=== PATIENT | male | born 1955 | race Caucasian/White ===

== ENCOUNTER 2016-07-05 12:47 | Day surgery (SDC) | payer OTHER ==
[~2016-07-05] VITALS: Ht 177.8 cm; Wt 117.7 kg
[2016-07-05] VITALS (10 sets, daily range): BP systolic 95–117; BP diastolic 69–85; PULSE 72–90; RESP 18–20; TEMP 98.4–98.6; O2SAT 96–98
[~2016-07-05 12:47] MED LIST: ATOR10 PO; COLC1TAB7 PO; COUM1TAB PO; HYDR12.56 PO; JANU50TA9 PO; LANO0.2510 PO; LORTA10 PO; LOSA25 PO; SOTA120T17 PO; WALKER STANDARD
[2016-07-05] MEDS ORDERED: INSULIN HUMAN REGULAR 1,000 UNITS/10 ML VIAL SQ PRN (13:45)
[2016-07-05] MEDS ORDERED: LORazepam 1 MG TAB SL SCH (13:45)
[2016-07-05] MEDS ORDERED: CHLORHEXIDINE GLUCONATE 2 % 1 PACK (2 CLOTHS) TOPICAL PRN (13:45)
[2016-07-05] MEDS ORDERED: LACTATED RINGER'S 1000 ML IV PRN (13:45)
[2016-07-05] MEDS ORDERED: SODIUM CHLORID 0.9% 500 ML IV PRN (13:45)
[2016-07-05] MEDS ORDERED: SODIUM CHLORID 0.9% 500 ML INJ 500 ML IV SCH (13:45)
[2016-07-05] MEDS ORDERED: METOPROLOL TARTRATE 25 MG TAB PO PRN (13:45)
[2016-07-05] MEDS ORDERED: POVIDONE IODINE 5% (ANTISEPSIS KIT) 4 APPLICATIONS EACH NARE PRN (13:45)
[2016-07-05] MEDS ORDERED: KOMB2.5T PO (13:54)
[2016-07-05] MEDS ORDERED: HYDR12.56 PO (13:54)
[2016-07-05] MEDS ORDERED: LOSA25TA PO (13:54)
[2016-07-05] MEDS ORDERED: WARF-22 PO (13:54)
[2016-07-05] MEDS ORDERED: DIGO0.25 PO (13:54)
[2016-07-05] MEDS ORDERED: [UNRECOGNIZED DRUG - CODE] PO (13:54)
[2016-07-05] MEDS ORDERED: WARF-18 PO (13:54)
[2016-07-05 13:57] LABS: AUTOMATED NEUTROPHIL # 4.3 TH/MM3 (1.8-7.7); BASOPHIL % 0.7 % (0.0-2.0); EOSINOPHIL # 0.5 TH/MM3 (0-0.4); EOSINOPHIL % 7.8 % (0.0-4.0); HEMATOCRIT 42.8 % (39.0-51.0); HEMO FLAGS DIFF FINAL; LYMPH % 12.7 % (9.0-44.0); LYMPHOCYTE # 0.8 TH/MM3 (1.0-4.8); MEAN CELL VOLUME 89.1 FL (80.0-100.0); MEAN CORPUSCULAR HEMOGLOBIN 31.2 PG (27.0-34.0); MONO % 11.6 % (0.0-8.0); NEUT % 67.2 % (16.0-70.0); PLATELET COUNT 153 TH/MM3 (150-450); RED CELL DISTRIBUTION WIDTH 14.4 % (11.6-17.2); WHITE BLOOD COUNT 6.4 TH/MM3 (4.0-11.0)
[2016-07-05 13:58] LABS: APTT (PATIENT) 37.9 SEC (24.3-30.1); INTERNATIONAL NORMALIZED RATIO 2.2 RATIO; PROTHROMBIN TIME - PATIENT 25.5 SEC (9.8-11.6)
[2016-07-05 14:19] LABS: BICARBONATE 28.8 MEQ/L (21.0-32.0)
[2016-07-05] MEDS ORDERED: MIDAZOLAM HCL 2 MG/2 ML VIAL ONE (15:13)
[2016-07-05] MEDS ORDERED: fentaNYL CITRATE 250 MCG/5 ML AMP ONE (15:14)
[2016-07-05] MEDS ORDERED: PROPOFOL 200 MG/20 ML AMP OTHER ONE (15:20)
[2016-07-05] MEDS ORDERED: SODIUM CHLORID 0.9% 500 ML BAG OTHER ONE (15:20)
[2016-07-05] MEDS ORDERED: LEVOFLOXACIN 500 MG PREMIX INJ 100 ML IV ONE (15:32)
[2016-07-05] MEDS ORDERED: HEPARIN-NS/PF INJ 500 ML ONE (15:32)
[2016-07-05] MEDS ORDERED: ISOPROTERENOL HCL 1 MG/5 ML AMP ONE (15:33)
[2016-07-05] MEDS ORDERED: HEPARIN SODIUM - IV 10,000 UNITS/10 ML VIAL ONE (15:33)
[2016-07-05] MEDS ORDERED: HEPARIN-D5W INJ 250 ML ONE (17:03)
[2016-07-05] MEDS ORDERED: PROTAMINE SULFATE 50 MG/5 ML VIAL ONE (18:43)
[2016-07-05] MEDS ORDERED: FUROSEMIDE 40 MG/4 ML VIAL ONE (18:43)
--- NOTE | 2016-07-05 18:57 | PD.CARD ---
Atrial Fibrillation Ablation PROCEDURE DATE: Jul 05, 2016 PROCEDURES PERFORMED: 1. Electrophysiology study on Isuprel infusion 2. CS cannulation 3. 3-D mapping 4. Transseptal approach 5. Right and left heart catheterization 6. Intracardiac echo 7. Radiofrequency ablation of atrial fibrillation 8. Pulmonary vein isolation 9. Posterior wall ablation 10. Mitral valve isolation 11. Mitral line creation 12. Left atrial tachycardia ablation 13. Roof line creation 14. Floor line creation 15. Anterior and posterior ablation 16. Cardioversion INDICATIONS FOR THE PROCEDURE Mr. Dalal is a 60-year-old male with hx of symptomatic atrial fibrillation, on anticoagulation, referred for electrophysiology study and ablation. The risks, the nature and the benefits of the procedure were clearly stated to him. The risks include pneumothorax, cardiac perforation, stroke, need for open heart surgery and even . The patient understood and agreed to proceed. DESCRIPTION OF THE PROCEDURE IN DETAIL As written informed consent was obtained prior to esophageal echocardiogram, the patient was kept on the table where he was prepped and draped in the usual sterile fashion. Conscious sedation was initiated and maintained throughout the procedure by the anesthesiologist. Once sedation was verified, the right and left inguinal areas were anesthetized with 2% Xylocaine. Using modified Seldinger technique, the left femoral vein was cannulated on three occasions, three guidewires were advanced. Over the wire a 6, 7 and a 10-[place] Hemaquet were advanced. Then the left femoral artery was cannulated on one occasion, one guidewire was advanced. Over the wire a 4-[place] African Hemaquet was advanced. Then the right femoral vein was cannulated on one occasion, one guidewire was advanced. Over the wire a 8-[place] Hemaquet was advanced. Then under fluoroscopic guidance through the 6 and 7-South African Hemaquet, two 5-South African Dinora curved quadripolar electrophysiology catheters were advanced and placed around the His as well as coronary sinus. Basic interval was measured. The patient was in atrial fibrillation. Through the 10-[place] African Hemaquet, a Cordis King AcuNav intracardiac echo catheter was advanced and placed at the right atrium. Multiple view was obtained. There is pericardial effusion, pulmonary vein was seen, atrial septal was visualized. Then the 8-[place] African Hemaquet in the right femoral vein was exchanged for Agilis transseptal sheath that was placed all the way to the superior vena cava. Through the sheath a Cody needle was advanced, then the sheath, the dilator and the needle were progressed until foci engaged. Once engaged, the needle was advanced. RF was delivered for 2 seconds. I was able to cross into the left atrium. Once the needle crossed, the dilator was advanced. Once the dilator crossed, the sheath was advanced. Once the sheath crossed, the dilator and the needle were removed. At this point I did flood the system and fluid movement was seen in the left atrium the indicates the sheath is in good position. The patient already received 8,000 units of heparin. The goal is to keep an ACT around 350 during ablation. Then through the sheath a St. Dann 20 pulse circumferential catheter was advanced. Using [employer] endocardial solution mapping system, a two- dimensional configuration of the left atrium was obtained. Points were taken at the left superior and inferior veins, right superior and inferior veins, mitral valve, and appendages. Then through the sheath a St. Dann TactiCath 65cm 3.5mm irrigated tipped mapping and radiofrequency ablation catheter was advanced. Esophageal probe was placed temperature monitoring during ablation. When it increased to 0.5 degrees Celsius above baseline, I moved to a different area of the atrium. First I did isolate the left superior and inferior vein. I did make a big kake around the veins. Posterior was ablated. Then a roof line was created, a floor line was created, a mitral line was isolated, then the mitral valve was isolated. At that point the patient was in left atrial tachycardia. I did create a line from the floor to the roof area, passing by the left atrial appendage. Then the right superior and inferior veins were isolated. I did remap the atrium. Early activation was at posterior floor. Then I did remap again apparently early activation shift to the right side. CS was mapped and isolated. Tachyarrhythmia cycle length increased. At this point I decided for cardioversion. A 200 sync biphasic joule was delivered that converted the patient into sinus rhythm. At that point I did advance the circumferential catheter again into the vein. There was no signal into the vein, pacing from the vein showed no conduction to the atrium. Isuprel infusion was initiated at 20 mcg for over 10 minutes. No tachyarrhythmia was induced, post Isuprel no tachyarrhythmia was induced. At that point the procedure was complete. All catheters were removed, atrial septal sheath was exchanged for 9-[place] African Hemaquet , intracardiac echo showed no pericardial effusion. There is still good flow in the pulmonary vein. The patient is going to be transferred to the recovery room. No incident report. The patient tolerated the procedure. Blood loss was minimal. FINDINGS 1. Electrocardiogram: At baseline the patient was in atrial fibrillation, post procedure the patient was in sinus rhythm. 2. Basic interval: Base cycle length was around 480. Post ablation she was around 960 milliseconds. AH at 90 and HV at 50 milliseconds. 3. Tachyarrhythmia: Atrial fibrillation was mapped and ablated. Atrial tachycardia was ablated. The ablation was successful. CONCLUSION Successful electrophysiology study, mapping, radiofrequency ablation of atrial fibrillation, left atrial tachycardia, pulmonary vein isolation, posterior ablation, mitral valve isolation, mitral line creation, roof line creation, floor line creation, left atrial tachycardia, right atrial tach ablation, CS isolation and cardioversion. COMMENTS AND RECOMMENDATIONS The patient is going to be transferred to the telemetry unit. Will be observed and when stable can be discharged home. Daxa Farrell MD Jul 05, 2016 18:57
[2016-07-05] MEDS ORDERED: WARFARIN SOD 2.5 MG TAB PO SCH (19:00)
[2016-07-05] MEDS ORDERED: oxyCODONE/ACETAMINOPHEN 5 MG/325 MG TAB PO PRN ×2 (19:00)
[2016-07-05] MEDS ORDERED: LORazepam 2 MG/ML VIAL IV PRN (19:00)
[2016-07-05] MEDS ORDERED: BACITRACIN OINT 0.9 GM PKT TOP ONE (19:00)
[2016-07-05] MEDS ORDERED: SODIUM CHLOR 0.9% 250 ML INJ 250 ML IV PRN (19:00)
[2016-07-05] MEDS ORDERED: ONDANSETRON HCL 4 MG/2 ML VIAL IV PRN (19:00)
[2016-07-05] MEDS ORDERED: METOCLOPRAMIDE HCL 10 MG/2 ML VIAL IV PRN (19:00)
[2016-07-05] MEDS ORDERED: LIDOCAINE HCL 1% 50 ML VIAL INFIL PRN (19:00)
[2016-07-05] MEDS ORDERED: ATROPINE SULFATE 1 MG/ML VIAL IV PRN (19:00)
[2016-07-05] MEDS ORDERED: WARFARIN SOD 10 MG TAB PO SCH (19:00)
[2016-07-05] MEDS ORDERED: PILL SPLITTER OTHER PRN (19:15)
[2016-07-05] MEDS: SOTALOL HCL 80 MG TAB PO SCH (21:03)
[2016-07-06] VITALS (9 sets, daily range): BP systolic 108–109; BP diastolic 77–87; PULSE 71–103; RESP 20; TEMP 98.1–98.4; O2SAT 96–98
[2016-07-06 06:21] LABS: APTT (PATIENT) 34.9 SEC (24.3-30.1); INTERNATIONAL NORMALIZED RATIO 2.2 RATIO; PROTHROMBIN TIME - PATIENT 24.7 SEC (9.8-11.6)
[2016-07-06] MEDS ORDERED: SAXAGLIPTIN METFORMIN PO SCH (09:00)
[2016-07-06] MEDS ORDERED: LOSARTAN 25 MG TAB PO SCH (09:00)
[2016-07-06] MEDS ORDERED: HYDROCHLOROTHIAZIDE 12.5 MG CAP PO SCH (09:00)
[2016-07-06] MEDS: SOTALOL HCL 80 MG TAB PO SCH (09:03)
--- NOTE | 2016-07-06 10:33 | HHI.PR ---
Subjective Remarks Feeling ok. Some issues with my hospital status Objective Vital Signs Date Time Temp Pulse Resp B/P Pulse Ox O2 Delivery O2 Flow Rate FiO2 07/06/16 10:00 103 07/06/16 09:00 98 07/06/16 07:00 98.1 74 20 109/87 96 07/06/16 07:00 74 07/06/16 05:00 76 07/06/16 04:00 74 07/06/16 04:00 98.4 71 20 108/77 98 07/06/16 03:00 74 07/06/16 02:00 74 07/06/16 01:00 74 07/06/16 00:00 72 07/05/16 23:27 98.4 72 20 95/77 98 07/05/16 23:00 72 07/05/16 22:30 105/78 07/05/16 22:00 80 07/05/16 21:45 114/82 07/05/16 21:15 117/76 07/05/16 21:00 104/80 07/05/16 21:00 84 07/05/16 20:45 96/69 07/05/16 20:33 98.4 83 18 105/69 97 07/05/16 20:25 82 16 102/71 97 Nasal Cannula 2 07/05/16 20:15 80 16 105/67 96 Nasal Cannula 2 07/05/16 20:00 79 16 105/66 95 Nasal Cannula 2 07/05/16 19:45 78 16 109/6 95 Nasal Cannula 2 07/05/16 19:30 83 16 115/79 95 Nasal Cannula 2 07/05/16 19:20 98.1 84 16 104/77 96 Nasal Cannula 2 07/05/16 13:57 98.6 90 18 114/85 96 I/O 07/05/16 07/05/16 07/05/16 07/06/16 07/06/16 07/06/16 07:00 15:00 23:00 07:00 15:00 23:00 Intake Total 2400 ml 1200 ml Output Total 1400 ml 800 ml Balance 1000 ml 400 ml Intake Oral 1200 ml IV Total 500 ml Other 1900 ml Output Urine Total 1400 ml 800 ml Result Diagram: 07/05/16 1330 07/05/16 1330 Imaging Alert, fully oriented Lungs: ventilated Heart: s1, S2 regular, no gallop Abdomen: soft, no mass Ext: no edema Current Medications Medications (Trade) Dose Ordered Sig/Luis Daniel Route Start Time Stop Time Status Last Admin Lactated Ringer's 1,000 ml @ 30 mls/hr Q24H PRN IV 07/05/16 13:45 07/08/16 13:44 Sodium Chloride 500 ml @ 30 mls/hr [id number] PRN IV 07/05/16 13:45 07/08/16 13:44 (NS 500 ml Inj) 500 ml @ 30 mls/hr [id number] IV 07/05/16 13:45 (Percocet 5-325 Mg) 1 tab Q4H PRN PO 07/05/16 19:00 (Percocet 5-325 Mg) 2 tab Q4H PRN PO 07/05/16 19:00 (Ativan Inj) 0.5 mg UNSCH PRN IV 07/05/16 19:00 07/06/16 18:59 Atropine Sulfate 0.5 mg 0.5 mg UNSCH PRN IV 07/05/16 19:00 (NS 250 ml Inj) 250 ml @ 500 mls/hr ONCE PRN IV 07/05/16 19:00 07/06/16 18:59 (Reglan Inj) 10 mg Q4H PRN IV 07/05/16 19:00 (Zofran Inj) 4 mg Q4H PRN IV 07/05/16 19:00 (Xylocaine 1% Inj (50 ml)) 10 ml UNSCH PRN INFIL 07/05/16 19:00 07/06/16 18:59 (Microzide) 12.5 mg DAILY PO 07/06/16 09:00 07/06/16 09:04 (Cozaar) 25 mg DAILY PO 07/06/16 09:00 07/06/16 09:04 (Coumadin) 2.5 mg DAILY@16 PO 07/05/16 19:00 07/05/16 21:36 (Coumadin) 10 mg DAILY@16 PO 07/05/16 19:00 07/05/16 21:36 Patient Own Medication PT OWN MED: Saxagliptin-Metformin... DAILY PO 07/06/16 09:00 07/06/16 09:00 (Betapace) 120 mg BID PO 07/05/16 21:00 07/06/16 09:03 (Pill Splitter) 1 ea UNSCH PRN OTHER 07/05/16 19:15 Assessment and Plan Problem List: (1) Atrial fibrillation Status: Acute Plan: SP ablation. Doing well. Feeling better Will be DH Amio added Follow up as scheduled (2) Palpitations Status: Acute Plan: No new episode since ablation. Doing better (3) SOB (shortness of breath) Status: Acute Plan: Improving Daxa Farrell MD Jul 06, 2016 10:33
[2016-07-06] MEDS ORDERED: AMIO200T PO ×2 (10:36)
[2016-07-06] MEDS ORDERED: AMIODARONE 200 MG TAB PO SCH (11:30)
--- NOTE | 2016-07-06 14:04 | ETE ---
Study Study Date:07/05/2016 STUDY CONCLUSIONS SUMMARY - Left ventricle: The cavity size was normal. Wall thickness was normal. Systolic function was normal. The estimated ejection fraction was in the range of 55% to 60%. Wall motion was normal; there were no regional wall motion abnormalities. - Aortic valve: No evidence of vegetation. - Mitral valve: No evidence of vegetation. - Left atrium: No evidence of thrombus in the atrial cavity or appendage. No evidence of thrombus in the atrial cavity or appendage. - Right atrium: No evidence of thrombus in the atrial cavity or appendage. - Atrial septum: No defect or patent foramen ovale was identified. Echo contrast study showed no [id number] atrial level shunt, at baseline or with provocation. - Tricuspid valve: No evidence of vegetation. - Pulmonic valve: No evidence of vegetation. If LV function is below 40, please consider prescribing an ACEI or ARB or document rationale for non-use. PROCEDURE DATA Consent: The risks, benefits, and alternatives to the procedure were explained to the patient and informed consent was obtained. Procedure: Initial setup. The patient was brought to the laboratory in the fasting state. Intravenous access was obtained. Surface ECG leads and pulse oximetric signals were monitored. Sedation. Conscious sedation was administered by anesthesiology. Transesophageal echocardiography. Topical anesthesia was obtained using viscous lidocaine. A transesophageal probe was inserted by the attending delivery merchandiser. Image quality was good. Study completion: All IVs inserted during the procedure were removed. The patient tolerated the procedure well. There were no complications. Transesophageal echocardiography. 2D, complete spectral Doppler, and color Doppler. CARDIAC ANATOMY LEFT VENTRICLE: The cavity size was normal. Wall thickness was normal. Systolic function was normal. The estimated ejection fraction was in the range of 55% to 60%. Wall motion was normal; there were no regional wall motion abnormalities. AORTIC VALVE: Trileaflet; mildly thickened leaflets. Cusp separation was normal. No evidence of vegetation. Doppler: No significant regurgitation. Aorta: - There was no atheroma. There was no evidence for dissection. Aortic root: The aortic root was not dilated. Ascending aorta: The ascending aorta was normal in size. Aortic arch: The aortic arch was normal in size. Descending aorta: The descending aorta was normal in size. MITRAL VALVE: Structurally normal valve. Leaflet separation was normal. No evidence of vegetation. Doppler: Trace regurgitation. LEFT ATRIUM: The atrium was normal in size. No evidence of thrombus in the atrial cavity or appendage. No evidence of thrombus in the atrial cavity or appendage. The appendage was morphologically a left appendage, multilobulated, and of normal size. Emptying velocity was normal. ATRIAL SEPTUM: No defect or patent foramen ovale was identified. Echo contrast study showed no [id number] atrial level shunt, at baseline or with provocation. RIGHT VENTRICLE: The cavity size was normal. Wall thickness was normal. Systolic function was normal. PULMONIC VALVE: Structurally normal valve. No evidence of vegetation. TRICUSPID VALVE: Structurally normal valve. Leaflet separation was normal. No evidence of vegetation. Doppler: Trace regurgitation. PULMONARY ARTERY: The main pulmonary artery was normal-sized. RIGHT ATRIUM: The atrium was normal in size. No evidence of thrombus in the atrial cavity or appendage. The appendage was morphologically a right appendage. PERICARDIUM: There was no pericardial effusion. Prepared and signed by Daxa Farrell [id number]
--- NOTE | 2016-07-07 07:12 | EKG ---
Date Performed: 07/05/2016 Time Performed: 13:46:32 PTAGE: 60 years EKG: Atrial fibrillation with frequent PVCs or aberrant ventricular conduction. Right bundle bra nch block Possible anterior infarct - age undetermined Inferior/lateral ST-T changes are nonspecific Low QRS voltages in precordial leads Abnormal ECG Compared to PREVIOUS TRACING , atrial fibrillation has replaced Sinus rhythm . PREVIOUS TRACIN10/15/2013 10.43 DOCTOR: Milo Sin Interpretating Date/Time 07/07/2016 07:10:17
[2016-07-11] MEDS ORDERED: AMIODARONE 200 MG TAB PO SCH (09:00)
== END 2016-07-06 11:35 | disposition home or self-care (01) ==
LOC: HDIC 12:47 → HDOC 12:47 → HCIS 20:28 → HDOC 07-06 11:35
PROVIDERS: ATTEND Internal Medicine Interventional Cardiology
DX: I48.2 Chronic atrial fibrillation (principal); I31.3 Pericardial effusion (noninflammatory)
CPT/HCPCS: 80048; 85002; 85025; 85610; 85730; 86850; 86900; 86901; 92960; 93005; 93312; 93320; 93325; 93613; 93623; 93656; 93662; C1730; C1731; C1732; C1759; C1766; C2630; J1644; J1940; J1956; J2250; J2720; J3010; J7040

== ENCOUNTER 2016-11-28 09:37 | Day surgery (SDC) | payer OTHER ==
[~2016-11-28] VITALS: Ht 177.8 cm; Wt 103.5 kg
[~2016-11-28 09:37] MED LIST changes: +AMIO200T PO; -ATOR10 PO; -COLC1TAB7 PO; -COUM1TAB PO; -JANU50TA9 PO; +KOMB2.5T PO; -LANO0.2510 PO; -LORTA10 PO; -LOSA25 PO; +LOSA25TA PO; -SOTA120T17 PO; -WALKER STANDARD; +WARF-22 PO
[2016-11-28 10:19] VITALS: BP 122/92; PULSE 156; RESP 17; TEMP 98.1; O2SAT 95
[2016-11-28 10:30] LABS: AUTOMATED NEUTROPHIL # 4.1 TH/MM3 (1.8-7.7); BASOPHIL % 0.5 % (0.0-2.0); EOSINOPHIL # 0.3 TH/MM3 (0-0.4); EOSINOPHIL % 5.1 % (0.0-4.0); HEMATOCRIT 42.5 % (39.0-51.0); HEMO FLAGS DIFF FINAL; LYMPH % 12.4 % (9.0-44.0); LYMPHOCYTE # 0.7 TH/MM3 (1.0-4.8); MEAN CELL VOLUME 91.6 FL (80.0-100.0); MEAN CORPUSCULAR HEMOGLOBIN 31.1 PG (27.0-34.0); MEAN CORPUSCULAR HGB CONC 33.9 % (32.0-36.0); MONO % 12.8 % (0.0-8.0); NEUT % 69.2 % (16.0-70.0); PLATELET COUNT 163 TH/MM3 (150-450); RED BLOOD COUNT 4.64 MIL/MM3 (4.50-5.90); RED CELL DISTRIBUTION WIDTH 15.6 % (11.6-17.2); WHITE BLOOD COUNT 5.9 TH/MM3 (4.0-11.0)
[2016-11-28] MEDS ORDERED: KOMB5TAB2 PO (10:34)
[2016-11-28] MEDS ORDERED: WARF-18 PO (10:34)
[2016-11-28] MEDS ORDERED: ATOR10TA15 PO (10:34)
[2016-11-28 10:46] LABS: APTT (PATIENT) 36.6 SEC (24.3-30.1); INTERNATIONAL NORMALIZED RATIO 2.3 RATIO; PROTHROMBIN TIME - PATIENT 26.7 SEC (9.8-11.6)
[2016-11-28 10:50] LABS: POTASSIUM 4.3 MEQ/L (3.5-5.1)
[2016-11-28] MEDS ORDERED: CHLORHEXIDINE GLUCONATE 2 % 1 PACK (2 CLOTHS) TOPICAL PRN (11:00)
[2016-11-28] MEDS ORDERED: METOPROLOL TARTRATE 25 MG TAB PO PRN (11:00)
[2016-11-28] MEDS ORDERED: SODIUM CHLORID 0.9% 500 ML IV PRN (11:00)
[2016-11-28] MEDS ORDERED: POVIDONE IODINE 5% (ANTISEPSIS KIT) 4 APPLICATIONS EACH NARE PRN (11:00)
[2016-11-28] MEDS ORDERED: LACTATED RINGER'S 1000 ML IV PRN (11:00)
[2016-11-28] MEDS ORDERED: INSULIN HUMAN REGULAR 1,000 UNITS/10 ML VIAL SQ PRN (11:00)
[2016-11-28] MEDS ORDERED: SODIUM CHLORID 0.9% 500 ML INJ 500 ML IV SCH (11:15)
[2016-11-28] MEDS ORDERED: LORazepam 1 MG TAB SL SCH (11:15)
[2016-11-28] MEDS ORDERED: SODIUM CHLOR 0.9% 250 ML INJ 250 ML ONE (13:06)
[2016-11-28] MEDS ORDERED: HEPARIN-NS/PF INJ 500 ML ONE (13:06)
[2016-11-28] MEDS ORDERED: ISOPROTERENOL HCL 1 MG/5 ML AMP ONE (13:06)
[2016-11-28] MEDS ORDERED: HEPARIN SODIUM - IV 10,000 UNITS/10 ML VIAL ONE (13:06)
[2016-11-28] MEDS ORDERED: MIDAZOLAM HCL 2 MG/2 ML VIAL ONE (13:16)
[2016-11-28] MEDS ORDERED: LEVOFLOXACIN 500 MG PREMIX INJ 100 ML IV ONE (13:29)
[2016-11-28] MEDS ORDERED: HEPARIN-NS/PF INJ 2,000 ML ONE (13:31)
--- NOTE | 2016-11-28 13:51 | EKG ---
Date Performed: 11/28/2016 Time Performed: 10:42:18 PTAGE: 61 years EKG: Atrial flutter with rapid ventricular response with 2:1 A-V block. Left axis deviation RBBB with left anterior fascicular block Inferior infarct - age undetermined Lateral ST-T changes may be due to myocardial ischemia Abnormal ECG Compared to prior tracing no significant change PREVIOUS TRACING : 07/05/2016 13.46 DOCTOR: Elvis Murphy Interpretating Date/Time 11/28/2016 13:47:41
[2016-11-28] MEDS ORDERED: HEPARIN-D5W 25,000 U/250 ML 250 ML ONE (14:31)
[2016-11-28] MEDS ORDERED: PROTAMINE SULFATE 50 MG/5 ML VIAL ONE (15:29)
[2016-11-28] MEDS ORDERED: FUROSEMIDE 40 MG/4 ML VIAL ONE (15:29)
--- NOTE | 2016-11-28 15:56 | CATHPROC ---
[employer] HIS Report Study Information Study Number Admission Scheduled Start Study Start [id number] Nov 28 2016 9:37AM 11/28/2016 Nov 28 2016 12:54PM [place] [facility] Electrophysiology Study Admit Source Facility Department Other [facility] - Node Js Developer Physician and Clinical Staff Initial Daxa Angel Pivot End Polisher Thierry Glass,RT(R) Other Ellyn Hoover RN Other Anesthesia, PHP MYSQL WEB DEVELOPER Recorder Anna Marie Varela BSRN Scrub Monika Aguila RCIS Procedures Performed Procedure Location (Site) Vessel Name Ablation Procedure ICE CATHETER INSERT RA Atruim Equipment Time Electrician Technician Description Size Mfg Part Number Used/Scraped NEEDLE, TRANSSEPTAL NRG 98 13:09 [facility] [id number] Used C1 [employer]/ EP 13:09 KIT, TRANSDUCER / AFIB [id number] Used PACER [id number] CATHETER, TACTICATH ABLAT BUNDLE 13:09 BUNDLE-[facility]. LETY Used 65 BUNDLE *[id number] BUNDLE [id number] CATHETER, FR7 OPTIMA SPIRAL 13:09 BUNDLE-[facility]. LETY FR7 *[id number]- Used BUNDLE BUNDLE [id number] 13:09 BUNDLE-[facility]. LETY CATHETER, JSN, QUAD BUNDLE FR 5 *[id number]- Used BUNDLE [id number] 13:09 BUNDLE-[employer]. LETY CATHETER, JSN, QUAD BUNDLE FR 5 *[id number]- Used BUNDLE [id number], COOL POINT TUBING 13:09 BUNDLE-ST. LETY *[id number]- Used BUNDLE BUNDLE SHEATH, FR8.5 STEERABLE SM 13:09 BUNDLE-ST. LETY 71CM [id number] Used 71CM BUNDLE COVER, TRANSDUCER CABLE 13:09 Carticipate [id number] Used ACUNAV 13:09 CORDIS/PACER SHEATH, FR10 CARROL 11CM FR 10 [id number] Used 13:09 CORDIS/PACER SHEATH, FR9 CARROL 11CM FR 9 [id number] Used [id number] 13:09 MEDLINE INDUSTRIES PACK, CCL CUSTOM * Used *[id number] 13:09 MEDLINE PACER BRO, LIMB * 3540 *[id number] Used [id number] 13:09 Stimatix GI MEDICAL SHEATH, FR4.5 PRELUDE 11CM FR 4.5 Used [id number] 13:09 NAMIC TUBING, HIGH PRESSURE 48" 48" Used *[id number] 13:09 NAMIC TUBING, HIGH PRESSURE 48" 48" Used *[id number] 13:09 [place] MEDICAL BLANKET,WARM AIR CCL * Used *[id number] 13:09 [facility] MEDICAL ELECTRODE KIT, RAMONA X SURFACE * [id number] Used [id number] 13:09 [facility] MEDICAL SHEATH, EPS, FR6 FAST CATH FR 6 Used *[id number] 13:09 [facility] LETY MEDICAL SHEATH, EPS, FR7 FAST CATH FR 7 [id number] Used [id number] 13:09 [facility] LETY MEDICAL SHEATH, EPS, FR8 FAST CATH FR 8 Used *[id number] CATHETER, ACUNAV FR10 ICE [id number] 14:16 DIOMEDES FR 10 Used (DIOMEDES) *[id number] [facility] PAD, ELECTROSURGICAL 13:09 * [id number] *[id number] Used SURGICAL GROUNDING (BLUE) History: Current Medications Medication Dosage/Unit Route Frequency Last Date/Time Taken Coumadin History: Allergies Allergy Reaction NKDA History: Risk Factors Previous Heart Failure Yes Diabetes Labs Hgb (g/dl) Hct (%) RBC (MIL/MM3) WBC (l/cumm) Platelets (thousands) 11.60-17.00 35.00-51.00 4.00-5.90 4.00-11.00 150.00-450.00 14.4 42.5 4.6 5.9 163 Glucose (mg/dl) BUN (mg/dl) Creatinine (mg/dl) BUN:Creatinine (1:x) 74.00-106.00 7.00-18.00 0.50-1.30 10.00-20.00 119 12 1.0 12 Na (meq/l) K (meq/l) 136.00-145.00 3.50-5.10 139 4.3 INR (PTT:PT) 0.90-1.10 2.2 Medication Medication Total Dose (Bolus/Oral) Medication Total Dosage/Unit 1% XYLOCAINE 40 mL HEPARIN 6000 units LASIX 20 mg PROTAMINE 40 mg Medications (Bolus/Oral) Medication Time Given Dosage/Unit Administered By Reason 1% XYLOCAINE 11/28/2016 2:06:13 PM 20 mL Daxa Farrell As per physicians albert bal order 20 mL 1% XYLOCAINE given in lab by Daxa Farrell in Left Groin via Subcutaneous. Ordered by Otto Farrell. Reason: As per physicians verbal order. 1% XYLOCAINE 11/28/2016 2:12:53 PM 20 mL Daxa Farrell For pain 20 mL 1% XYLOCAINE given in lab by Daxa Farrell in Right Groin via Subcutaneous. Ordered by Andrey Farrell. Reason: For pain. HEPARIN 11/28/2016 2:18:41 PM 6000 units Anesthesia, PHP MYSQL WEB DEVELOPER As per physicians verbal order 6000 units HEPARIN given in lab by Anesthesia, PHP MYSQL WEB DEVELOPER in Right Forearm via Peripheral IV. Ordered by Daxa Chacko. Reason: As per physicians verbal order. PROTAMINE 11/28/2016 3:28:28 PM 40 mg Anesthesia, PHP MYSQL WEB DEVELOPER As per physicians ve rbal order 40 mg PROTAMINE given in lab by Anesthesia, PHP MYSQL WEB DEVELOPER in Right Forearm via Peripheral IV. Ordered by Daxa Farrell. Reason: As per physicians verbal order. LASIX 11/28/2016 3:28:57 PM 20 mg Anesthesia, PHP MYSQL WEB DEVELOPER As per physicians verb al order 20 mg LASIX given in lab by Anesthesia, PHP MYSQL WEB DEVELOPER in Right Forearm via Peripheral IV. Ordered by Otto Farrell. Reason: As per physicians verbal order. Medication (Drip) Medication Time Given Dosage/Unit Concentration/Unit Diluent (ml) Solution HEPARIN DRIP 11/28/2016 2:31:47 PM 1000 units/hr 40732 units 250 D5W 1000 units/hr HEPARIN DRIP given in lab by Anesthesia, PHP MYSQL WEB DEVELOPER in Right Forearm via Peripheral IV. Pump/ Drip Flow = 10 ml/hr using [place] [address] units in 250 ml. Ordered by Daxa Farrell. Reason: As per physicians verbal or zhanna. ISUPREL 11/28/2016 3:14:28 PM 20 mcg/min 1 mg 250 NaCl .9 20 mcg/min ISUPREL given in lab by Anesthesia, PHP MYSQL WEB DEVELOPER in Right Forearm via Peripheral IV. Pump/Drip Ahsan w = 300 ml/hr using NaCl .9 with a concentration of 1 mg in 250 ml. Ordered by Daxa Farrell. Reason: As per physicians verbal order. IV Solutions 11/28/2016 1:19:45 PM 0 mL (IV) NaCl .9 IV Solutions given in lab by Mrache, Ellyn, RN in Left Forearm via Peripheral IV. Pump/Drip Flow = 50 ml/hr using NaCl .9. Ordered by Daxa Farrell. Reason: As per physicians verbal order. IV Solutions 11/28/2016 1:20:41 PM 0 mL (IV) NaCl .9 IV Solutions given in lab by Ellyn Hoover RN in Left Forearm via Peripheral IV. Pump/Drip Flow = 50 ml/hr using NaCl .9. Ordered by Daxa Farrell. Reason: As per physicians verbal order. LEVAQUIN 11/28/2016 1:34:10 PM 100 mL/hr 500 100 NaCl .9 100 mL/hr LEVAQUIN given in lab by Ellyn Hoover, AYLEEN in Right Forearm via Peripheral IV. Pump/Drip Flow = 0 ml/hr using NaCl .9 with a concentration of 500 in 100 ml. Ordered by Daxa Farrell. Reason: As per physicians verbal order. Initial Case Assessment Cardiovascular HR NIBP 107 110/85 Edema Present Skin color Skin None Normal Warm Dry Neurological State Oriented to time-place- Alert Moves all extremities person Respiration - General Respiration Rate SpO2 (%) (B/min) 20 97 Final Case Assessment Cardiovascular HR NIBP Chest Pain 89 101/56 0 Edema Present Skin color Skin None Normal Warm Dry Neurological State Oriented to time-place- Alert Moves all extremities person Respiration - General Respiration Rate SpO2 (%) (B/min) 18 98 Chronological Log Time Study Chronological Log 13:16:24 Patient arrived via Bed. 13:16:26 Patient Name, D.O.B, / Armband Verified By R.N. 13:16:30 Consent signed by the physician and the patient and verified by the Node Js Developer staff. 13:16:32 Pre-op and post- op instructions given; patient acknowledges understanding of instructions. 13:18:46 Verbal Stimulation=2 Physical Stimulation=2 Airway=2 Respiration=2 TOTAL=10. (0=absent, 1=l imited, 2=present) 13:18:58 Anesthesia at bedside. Assumes care of patient. Ian SCHAEFFER 13:19:00 Presedation assessment performed by Node Js Developer RN. 13:19:03 Immediate Presedation assesment performed by physician. 13:19:05 Patient has been NPO for More than 6Hrs. 13:19:08 Skin Breakdown- none 13:19:17 Patient Warmer Placed on the Table. 13:19:20 Disposable Defibrillator Pads Placed On Patient. 13:19:23 Ramses Prominences Protected 13:19:27 A # 20 IV was noted in the Forearm (left). Grade = ~GRADE~ 13:19:36 A # 20 IV was noted in the Forearm (right). Grade = ~GRADE~ IV Solutions given in lab by Ellyn Hoover RN in Left Forearm via Peripheral IV. Pump/Drip Flow = 50 ml/hr using 13:19:45 NaCl .9. Ordered by Daxa Farrell. Reason: As per physicians verbal order. IV Solutions given in lab by Ellyn Hoover RN in Left Forearm via Peripheral IV. Pump/Drip Flow = 50 ml/hr using 13:20:41 NaCl .9. Ordered by Daxa Farrell. Reason: As per physicians verbal order. 13:20:59 History and physical on the chart or being dictated. Assessment: Initial Case, SZ=999 BPM, EPYQ=663/85 mmhg, Edema=None, Color=Normal, Skin = Warm, Dry 13:21:08 Neurological: State=Alert, Ox3, ELDRIDGE Respiration: Resp=20 B/min, SpO2=97 % 13:21:11 Table restraints applied according to hospital policy 13:21:13 Right groin prepped with 2% chlorhexidine, and with a 3 min. waiting time. 13:21:16 Left groin prepped with 2% chlorhexidine, and with a 3 min. waiting time. 100 mL/hr LEVAQUIN given in lab by Ellyn Hoover RN in Right Forearm via Peripheral IV. Pum p/Drip Flow = 0 13:34:10 ml/hr using NaCl .9 with a concentration of 500 in 100 ml. Ordered by Daxa Farrell. Reason : As per physicians verbal order. 13:34:27 Indwelling uretheral catheter inserted my Marisa ABBASI with clear yellow urine noted. 13:37:55 Reference ECG taken 13:57:55 MD arrived. Time Out. Correct patient, procedure, procedure equipment, site and side verified with physicia n present. Time 14:02:00 concurred by MD, individual staff and PHP MYSQL WEB DEVELOPER. Time Out #2 - Consents verified, patient in correct position, all results are labled and displa yed, safety precautions 14:02:16 taken, antibiotics administered. Time out concurred by MD, individual staff and PHP MYSQL WEB DEVELOPER in procedu re 14:02:29 Case Start 14:02:34 RICKY in progress. 14:04:50 RICKY complete. 20 mL 1% XYLOCAINE given in lab by Daxa Farrell in Left Groin via Subcutaneous. Ordered by Daxa Hannon. 14:06:13 Reason: As per physicians verbal order. 14:06:31 Vascular access was obtained in the Fem Vein (left). 14:06:36 Vascular access was obtained in the Fem Vein (left). 14:06:36 Vascular access was obtained in the Fem Vein (left). 14:07:03 Vascular access was obtained in the Fem Art (left). 14:07:22 A SHEATH, FR4.5 PRELUDE 11CM FR 4.5 was advanced into the Fem Art (left) using the Percutan eous technique. 14:07:35 A SHEATH, EPS, FR6 FAST CATH FR 6 was advanced into the Fem Vein (left) using the Percutane ous technique. 14:07:44 A SHEATH, EPS, FR7 FAST CATH FR 7 was advanced into the Fem Vein (left) using the Percutane ous technique. 14:07:53 A SHEATH, FR10 CARROL 11CM FR 10 was advanced into the Fem Vein (left) using the Percutaneo us technique. 20 mL 1% XYLOCAINE given in lab by Daxa Farrell in Right Groin via Subcutaneous. Ordered by Daxa Chacko. 14:12:53 Reason: For pain. 14:13:08 Vascular access was obtained in the Fem Vein (right). 14:13:14 A SHEATH, EPS, FR8 FAST CATH FR 8 was advanced into the Fem Vein (right) using the Percutan eous technique. A CATHETER, JSN, QUAD BUNDLE FR 5 was advanced vis Fem Vein (left) and placed in the CS. Placem ent was visually 14:13:30 confirmed under fluoroscopy. A CATHETER, JSN, QUAD BUNDLE FR 5 was advanced vis Fem Vein (left) and placed in the HIS. Place ment was 14:13:52 visually confirmed under fluoroscopy. 14:15:49 CATHETER, ACUNAV FR10 ICE (DIOMEDES) FR 10 Was Postioned. A SHEATH, FR8.5 STEERABLE SM 71CM BUNDLE 71CM was exchanged in the Fem Vein (right). This was n ecessary in 14:16:39 order for catheter support. 14:16:54 [place] needle inserted. 14:17:43 Transseptal. 14:17:50 [place]view needle removed. 6000 units HEPARIN given in lab by Anesthesia, PHP MYSQL WEB DEVELOPER in Right Forearm via Peripheral IV. Ordered by Daxa Farrell. 14:18:41 Reason: As per physicians verbal order. A CATHETER, FR7 OPTIMA SPIRAL BUNDLE FR7 was advanced vis Fem Vein (right) and placed in the LA . Placement 14:19:26 was visually confirmed under fluoroscopy. 14:19:39 Mapping begun. 14:23:11 Activated Clotting Time Drawn 14:29:03 Mapping completed. Scarbro catheter removed. A CATHETER, TACTICATH ABLAT 65 BUNDLE was advanced vis Fem Vein (right) and placed in the LA. P lacement was 14:29:44 visually confirmed under fluoroscopy. 14:30:53 ACT (Normal Range 90-180) = 358 1000 units/hr HEPARIN DRIP given in lab by Anesthesia, PHP MYSQL WEB DEVELOPER in Right Forearm via Peripheral IV. Pump/Drip Flow = 10 14:31:47 ml/hr [place] [address] units in 250 ml. Ordered by Daxa Farrell. Re ason: As per physicians verbal order. 14:32:19 Ablation in progress. 15:00:36 Activated Clotting Time Drawn 15:04:54 ACT (Normal Range 90-180) = 347 15:14:18 Ablation completed. 20 mcg/min ISUPREL given in lab by Anesthesia, PHP MYSQL WEB DEVELOPER in Right Forearm via Peripheral IV. Pump/Dr ip Flow = 300 ml/hr 15:14:28 using NaCl .9 with a concentration of 1 mg in 250 ml. Ordered by Daxa Farrell. Reason: As per physicians verbal order. 15:23:57 Isuprel gtt off. 15:24:34 Ablation procedure performed: AFIB. 15:24:50 EP Procedure was performed. 15:25:00 Catheter(s) removed without difficulty 15:25:03 Sheath(s) left in place, will be removed in Holding Area 15:25:07 Sterile dressings applied to sites 15:25:09 No case complications noted. 15:25:11 Cine recording checked. 15:25:14 Holding Area notified of successful intervention. 15:25:20 Bedside Report will be given. 15:25:29 Defibrillator and ground pads removed. Skin intact. 15:25:38 PACU called. Spoke to Zina. 40 mg PROTAMINE given in lab by Anesthesia, PHP MYSQL WEB DEVELOPER in Right Forearm via Peripheral IV. Ordered by Daxa Farrell. 15:28:28 Reason: As per physicians verbal order. 20 mg LASIX given in lab by Anesthesia, PHP MYSQL WEB DEVELOPER in Right Forearm via Peripheral IV. Ordered by Daxa Hannon. Reason: 15:28:57 As per physicians verbal order. Assessment: Final Case, HR=89 BPM, AIUP=094/56 mmhg, Chest Pain=0, Edema=None, Color=Normal, Sk in = Warm, Dry 15:30:42 Neurological: State=Alert, Ox3, ELDRIDGE Respiration: Resp=18 B/min, SpO2=98 % 15:45:48 ACT (Normal Range 90-180) = 146 15:59:00 Case End 16:00:00 [facility] in stable condition. End Study - Contrast Media Used In Study Contrast Total Opened (mL) Total Used (mL) Total Wasted (mL) Unspecified 0 0 0 End Study - Maximum Contrast Load Max Contrast Load (mL) 518.0 End Study - Radiation Exposure Fluoro Time (minutes) 0.9 End Study - Patient Disposition Complications Transferred To Interventional Outcome No Telemetry Bed successful
[2016-11-28] MEDS ORDERED: BACITRACIN OINT 0.9 GM PKT TOP ONE (16:15)
[2016-11-28] MEDS ORDERED: SODIUM CHLOR 0.9% 250 ML INJ 250 ML IV PRN (16:15)
[2016-11-28] MEDS ORDERED: LIDOCAINE HCL 1% 50 ML VIAL INFIL PRN (16:15)
[2016-11-28] MEDS ORDERED: LORazepam 2 MG/ML VIAL IV PRN (16:15)
[2016-11-28] MEDS ORDERED: oxyCODONE/ACETAMINOPHEN 5 MG/325 MG TAB PO PRN ×2 (16:15)
[2016-11-28] MEDS ORDERED: ONDANSETRON HCL 4 MG/2 ML VIAL IV PRN (16:15)
[2016-11-28] MEDS ORDERED: METOCLOPRAMIDE HCL 10 MG/2 ML VIAL IV PRN (16:15)
[2016-11-28] MEDS ORDERED: ATROPINE SULFATE 1 MG/ML VIAL IV PRN (16:15)
--- NOTE | 2016-11-28 16:17 | PD.CARD ---
Atrial Fibrillation Ablation PROCEDURE DATE: Nov 28, 2016 PROCEDURES PERFORMED: 1. Electrophysiology study on Isuprel infusion 2. CS cannulation 3. 3-D mapping 4. Transseptal approach 5. Right and left heart catheterization 6. Intracardiac echo 7. Radiofrequency ablation of atrial fibrillation 8. Pulmonary vein isolation 9. Posterior wall ablation 10. Mitral valve isolation 11. Mitral line creation 12. Left atrial tachycardia ablation 13. Roof line creation 14. Floor line creation 15. Anterior wall ablation INDICATIONS FOR THE PROCEDURE Mr. Dalal is a 61-year-old male with atrial fibrillation, very symptomatic, on anticoagulation referred for electrophysiology study and ablation. The risks, the nature and the benefits of the procedure were clearly stated to him. The risks include pneumothorax, cardiac perforation, stroke, need for open heart surgery and even . The patient understood and agreed to proceed. DESCRIPTION OF THE PROCEDURE IN DETAIL As written informed consent was obtained prior to esophageal echocardiogram, the patient was kept on the table where he was prepped and draped in the usual sterile fashion. Conscious sedation was initiated and maintained throughout the procedure by the anesthesiologist. Once sedation was verified, the right and left inguinal areas were anesthetized with 2% Xylocaine. Using modified Seldinger technique, the left femoral vein was cannulated on three occasions, three guidewires were advanced. Over the wire a 6, 7 and a 10-Argentine Hemaquet were advanced. Then the left femoral artery was cannulated on one occasion, one guidewire was advanced. Over the wire a 4-Argentine Hemaquet was advanced. Then the right femoral vein was cannulated on one occasion, one guidewire was advanced. Over the wire a 8-Argentine Hemaquet was advanced. Then under fluoroscopic guidance through the 6 and 7-Argentine Hemaquet, two 5-Argentine Dinora curved quadripolar electrophysiology catheters were advanced and placed around the His as well as coronary sinus. Basic interval was measured. The patient was in atrial fibrillation. Through the 10-Argentine Hemaquet, a Cordis King AcuNav intracardiac echo catheter was advanced and placed at the right atrium. Multiple view was obtained. There was no pericardial effusion, pulmonary vein was seen, atrial septal was visualized. Then the 8-Argentine Hemaquet in the right femoral vein was exchanged for Agilis transseptal sheath that was placed all the way to the superior vena cava. Through the sheath a Cody needle was advanced, then the sheath, the dilator and the needle were progressed until foci engaged. Once engaged, the needle was advanced. RF was delivered for 2 seconds. I was able to cross into the left atrium. Once the needle crossed, the dilator was advanced. Once the dilator crossed, the sheath was advanced. Once the sheath crossed, the dilator and the needle were removed. At this point I did flood the system and fluid movement was seen in the left atrium the indicates the sheath is in good position. The patient already received 10,000 units of heparin. The goal is to keep an ACT around 350 during ablation. Then through the sheath a St. Dann 20 pulse circumferential catheter was advanced. Using [employer] endocardial solution mapping system, a two-dimensional configuration of the left atrium was obtained. Points were taken at the left superior and inferior veins, right superior and inferior veins, mitral valve, and appendages. Then through the sheath a St. Dann TactiCath 65cm 3.5mm irrigated tipped mapping and radiofrequency ablation catheter was advanced. Esophageal probe was placed temperature monitoring during ablation. When it increased to 0.5 degrees Celsius above baseline, I moved to a different area of the atrium. First I did isolate the left superior and inferior vein. I did make a big [place] around the veins. Posterior was ablated. Then a roof line was created, a floor line was created, a mitral line was isolated, then the mitral valve was isolated. At that point the patient was in left atrial tachycardia. I did create a line from the floor to the roof area, passing by the left atrial appendage. Early activation was at the anterior wall. Ablation was performed. CL prolonged and patient converted into sinus rhythm. At that point I did advance the circumferential catheter again into the vein. There was no signal into the vein, pacing from the vein showed no conduction to the atrium. Isuprel infusion was initiated at 20 mcg for over 10 minutes. No tachyarrhythmia was induced, post Isuprel no tachyarrhythmia was induced. At that point the procedure was complete. All catheters were removed, atrial septal sheath was exchanged for 9-Argentine Hemaquet, intracardiac echo showed no pericardial effusion. There is still good flow in the pulmonary vein. The patient is going to be transferred to the recovery room. No incident report. The patient tolerated the procedure. Blood loss was minimal. FINDINGS 1. Electrocardiogram: At baseline the patient was in atrial fibrillation, post procedure the patient was in sinus rhythm. 2. Basic interval: Base cycle length was around 520. Post ablation she was around 980 milliseconds. AH at 120 and HV at 54 milliseconds. 3. Tachyarrhythmia: Atrial fibrillation and left atrial tachycardia was mapped and ablated. The ablation was successful. CONCLUSION Successful electrophysiology study, mapping, radiofrequency ablation of atrial fibrillation, left atrial tachycardia, pulmonary vein isolation, posterior ablation, mitral valve isolation, mitral line creation, roof line creation, floor line creation, left atrial tachycardia. COMMENTS AND RECOMMENDATIONS The patient is going to be transferred to the telemetry unit. Will be observed and when stable can be discharged home. Daxa Farrell MD Nov 28, 2016 16:17
[2016-11-28] MEDS ORDERED: WARFARIN SOD 10 MG TAB PO SCH (18:00)
[2016-11-28] MEDS ORDERED: WARFARIN SOD 2.5 MG TAB PO SCH (18:00)
[2016-11-28 19:00] VITALS: BP 94/77; PULSE 84; RESP 18; TEMP 98; O2SAT 99
[2016-11-28] MEDS ORDERED: WARFARIN SOD 7.5 MG TAB PO SCH (19:00)
[2016-11-28] MEDS ORDERED: DO NOT ADM ANY ANTICOAGULANT DRUGS PRN (19:00)
[2016-11-28 21:00] VITALS: PULSE 84
[2016-11-28] MEDS ORDERED: ATORVASTATIN 10 MG TAB PO SCH (21:00)
[2016-11-28] MEDS ORDERED: SAXAGLIPTIN METFORMIN PO SCH (21:00)
[2016-11-28 22:00] VITALS: PULSE 84
[2016-11-28 23:00] VITALS: BP 95/67; PULSE 84; RESP 18; TEMP 98; O2SAT 98
[2016-11-29] VITALS (9 sets, daily range): BP systolic 103–113; BP diastolic 69–81; PULSE 76–84; RESP 16–20; TEMP 97.8–98; O2SAT 97–100
[2016-11-29 07:47] LABS: APTT (PATIENT) 37.3 SEC (24.3-30.1); INTERNATIONAL NORMALIZED RATIO 2.8 RATIO; PROTHROMBIN TIME - PATIENT 32.3 SEC (9.8-11.6)
[2016-11-29] MEDS ORDERED: HYDROCHLOROTHIAZIDE 12.5 MG CAP PO SCH (09:00)
[2016-11-29] MEDS ORDERED: AMIODARONE 200 MG TAB PO SCH (09:00)
[2016-11-29] MEDS ORDERED: LOSARTAN 25 MG TAB PO SCH (09:00)
--- NOTE | 2016-11-29 10:01 | HHI.PR ---
Subjective Remarks Feeling better Objective Vital Signs Date Time Temp Pulse Resp B/P (MAP) Pulse Ox O2 Delivery O2 Flow Rate FiO2 11/29/16 07:30 98.0 81 20 113/81 (92) 100 11/29/16 07:00 81 11/29/16 06:03 76 11/29/16 05:00 76 11/29/16 04:00 78 11/29/16 03:00 76 11/29/16 03:00 97.8 80 16 103/69 (80) 97 11/29/16 03:00 97 Room Air 11/29/16 02:00 76 11/29/16 01:00 78 11/29/16 00:00 84 11/28/16 23:00 98 Nasal Cannula 2.00 11/28/16 23:00 84 11/28/16 23:00 98.0 84 18 95/67 (76) 98 11/28/16 22:00 84 11/28/16 21:00 84 11/28/16 19:00 98.7 83 21 107/73 (84) 99 Nasal Cannula 2 11/28/16 19:00 99 Nasal Cannula 2.00 11/28/16 19:00 98.0 84 18 94/77 (83) 99 11/28/16 18:00 81 20 99/69 (79) 99 Nasal Cannula 2 11/28/16 17:15 79 14 99/67 (78) 95 Nasal Cannula 2 11/28/16 17:00 78 14 93/66 (75) 95 Nasal Cannula 2 11/28/16 16:45 80 13 92/65 (74) 95 Nasal Cannula 2 11/28/16 16:30 78 17 104/63 (77) 96 Nasal Cannula 2 11/28/16 16:15 79 14 94/67 (76) 97 Nasal Cannula 2 11/28/16 16:00 97.5 82 16 91/63 (72) 97 Nasal Cannula 2 11/28/16 10:19 98.1 156 17 122/92 (102) 95 I/O 11/28/16 11/28/16 11/28/16 11/29/16 11/29/16 11/29/16 07:00 15:00 23:00 07:00 15:00 23:00 Intake Total 220 ml 720 ml Output Total 1825 ml 525 ml Balance -1605 ml 195 ml Intake Oral 220 ml 720 ml Output Urine Total 1825 ml 525 ml # Voids 1 Result Diagram: 11/28/16 0958 11/28/16 0958 Imaging Alert, fully oriented Lungs: ventilated Heart: S1, S2 regular, no gallop Abdomen: soft, no mass Ext: no edema Current Medications Medications (Trade) Dose Ordered Sig/Luis Daniel Route Start Time Stop Time Status Last Admin Lactated Ringer's 1,000 ml @ 30 mls/hr Q24H PRN IV 11/28/16 11:00 12/01/16 10:59 Sodium Chloride 500 ml @ 30 mls/hr [id number] PRN IV 11/28/16 11:00 12/01/16 10:59 (Lopressor) 25 mg HEAD PIECE ASSEMBLER PRN PO 11/28/16 11:00 12/01/16 10:59 (Betadine 5% Antisepsis Kit) 1 applic HEAD PIECE ASSEMBLER PRN EACH NARE 11/28/16 11:00 12/01/16 10:59 (Chlorhexidine 2% Cloth) 3 pack HEAD PIECE ASSEMBLER PRN TOPICAL 11/28/16 11:00 12/01/16 10:59 (NovoLIN R INJ) See Protocol Table ... HEAD PIECE ASSEMBLER PRN SQ 11/28/16 11:00 12/01/16 10:59 Sodium Chloride 500 ml @ 30 mls/hr [id number] IV 11/28/16 11:15 (Ativan) 1 mg HEAD PIECE ASSEMBLER SL 11/28/16 11:15 12/01/16 11:14 (Percocet 5-325 Mg) 1 tab Q4H PRN PO 11/28/16 16:15 (Percocet 5-325 Mg) 2 tab Q4H PRN PO 11/28/16 16:15 (Ativan Inj) 0.5 mg UNSCH PRN IV 11/28/16 16:15 11/29/16 16:14 (Atropine Inj) 0.5 mg UNSCH PRN IV 11/28/16 16:15 Sodium Chloride 250 ml @ 500 mls/hr ONCE PRN IV 11/28/16 16:15 11/29/16 16:14 (Reglan Inj) 10 mg Q4H PRN IV 11/28/16 16:15 (Zofran Inj) 4 mg Q4H PRN IV 11/28/16 16:15 (Xylocaine 1% Inj (50 ml)) 10 ml UNSCH PRN INFIL 11/28/16 16:15 11/29/16 16:14 (Cordarone) 200 mg DAILY PO 11/29/16 09:00 11/29/16 08:04 (Lipitor) 10 mg HS PO 11/28/16 21:00 11/28/16 22:02 (Microzide) 12.5 mg DAILY PO 11/29/16 09:00 11/29/16 08:04 (Cozaar) 25 mg DAILY PO 11/29/16 09:00 11/29/16 08:04 Patient Own Medication PT OWN MED: Saxagliptin-Metformin... BID PO 11/28/16 21:00 Miscellaneous Information ALL NURSING DEPARTME... UNSCH PRN .XX 11/28/16 19:00 11/29/16 18:59 Assessment and Plan Problem List: (1) Atrial fibrillation ICD Codes: I48.91 - Unspecified atrial fibrillation Status: Acute Plan: SP ablation. Doing better In sinus rhythm Can be DH Follow up as scheduled (2) Palpitations ICD Codes: R00.2 - Palpitations Status: Acute Plan: No significant episodes reported Daxa Farrell MD Nov 29, 2016 10:01
--- NOTE | 2016-11-29 14:31 | EKG ---
Date Performed: 11/28/2016 Time Performed: 16:59:44 PTAGE: 61 years EKG: Normal Sinus rhythm with first degree AV block Right bundle branch block with secondary ST-T wave changes No obvious tania nge from the old tracing. PREVIOUS TRACING : 11/28/2016 10.42 DOCTOR: Damion Myers Interpretating Date/Time 11/29/2016 14:30:58
--- NOTE | 2016-11-29 14:32 | EKG ---
Date Performed: 11/29/2016 Time Performed: 05:38:20 PTAGE: 61 years EKG: Sinus rhythm with borderline 1st degree A-V block Prolonged QT interval Poor R wave progression - probable normal variant Inferior/lateral T wave changes are nonspecific Low QRS voltages in precordial leads Borderl ine ECG Right bundle branch block no longer present. PREVIOUS TRACING : 11/28/2016 16.59 DOCTOR: Damion Myers Interpretating Date/Time 11/29/2016 14:30:38
[2016-12-01] MEDS ORDERED: WARFARIN SOD 10 MG TAB PO SCH (16:00)
--- NOTE | 2016-12-04 09:34 | ECHRPT ---
Indication: CONCLUSIONS No clot seen in left atrium, nor left atrial appendage Moderate left atrial enlargement. Slightly decrease left venticulkar systolic function. EF 45-50% Mild mitral regurgitation BP: / HR: Rhythm: Technical Quality:Excellent Medications Administered by anesthesiology Complications none Proc. Components FINDINGS LEFT VENTRICLE Slightly decrease contractility Ejection fraction 45-50%. RIGHT VENTRICLE Normal right ventricular size and systolic function. LEFT ATRIUM Mild left atrial enlargement RIGHT ATRIUM The right atrial size is normal. ATRIAL APPENDAGES No clot seen ATRIAL SEPTUM Normal atrial septal thickness without atrial level shunting by limited color doppler interrogation. AORTA The aortic root and proximal ascending aorta are normal in size on limited imaging. MITRAL VALVE Structurally normal mitral valve. Mild mitral regurgitation AORTIC VALVE Trileaflet aortic valve. No aortic valve stenosis or regurgitation. TRICUSPID VALVE Structurally normal tricuspid valve. No tricuspid valve stenosis or regurgitation. VESSELS The inferior vena cava is normal in size. PULMONARY VALVE The pulmonary valve is not well visualized. PERICADIUM No pericardial effusion. Daxa Farrell MD Edited by: [employer] Professor (Electronically Signed) Final Date:03 December 2016 22:37 Amended: 04 December 2016 09:32
== END 2016-11-29 11:25 | disposition home or self-care (01) ==
LOC: HDOC 09:37 → HDIC 09:38 → HCIS 19:53 → HDOC 11-29 11:25
PROVIDERS: ATTEND Internal Medicine Interventional Cardiology
DX: I48.91 Unspecified atrial fibrillation (principal); I47.1 Supraventricular tachycardia; R00.2 Palpitations; I50.9 Heart failure, unspecified; E11.9 Type 2 diabetes mellitus without complications; N20.0 Calculus of kidney; E66.9 Obesity, unspecified; Z68.32 Body mass index [BMI] 32.0-32.9, adult; Z79.01 Long term (current) use of anticoagulants; Z79.899 Other long term (current) drug therapy
CPT/HCPCS: 80048; 85002; 85025; 85610; 85730; 86850; 86900; 86901; 93005; 93312; 93320; 93325; 93613; 93623; 93656; 93662; C1730; C1731; C1732; C1759; C1766; C2630; J1644; J1940; J1956; J2250; J2720; J3010; J7050